=== PATIENT | female | born 1950 | race Two or more races ===

== ENCOUNTER 2023-11-26 11:30 | Inpatient (IN) | payer OTHER ==
[~2023-11-26] VITALS: Ht 152.4 cm; Wt 51.7 kg
[2023-11-26] MEDS ORDERED: CLONAZEPAM2 M1 PO (13:24)
[2023-11-26] MEDS ORDERED: ARICEPT5 MG PO (13:24)
[2023-11-26] MEDS ORDERED: TRAZODONE HCL150 MG PO (13:24)
[2023-11-26] MEDS ORDERED: LOSARTAN POTASS50 MG PO (13:25)
[2023-11-26] MEDS ORDERED: NORVASC5 MG PO (13:25)
[2023-11-26 13:26] VITALS: BP 133/64
[2023-11-26] MEDS ORDERED: GLUMETZA500 MG PO (13:26)
[2023-11-26] MEDS ORDERED: ZOCOR40 MG PO (13:26)
[2023-12-02] MEDS ORDERED: METRONIDAZOLE/SODIUM CHLORIDE 500 MG/100 ML PIGGYBACK IV SCH (08:45)
[2023-12-02] MEDS ORDERED: BUPIVACAINE HCL 30 ML VIAL IJ SCH (08:45)
[2023-12-02] MEDS ORDERED: LIDOCAINE HCL 1%/EPINEPHRINE 20ML VIAL IJ SCH (08:45)
[2023-12-02] MEDS ORDERED: CEFTRIAXONE SODIUM 2,000 MG VIAL IV SCH (08:45)
[2023-12-02] MEDS ORDERED: OMEPRAZOLE40 MG (09:49)
[2023-12-02] MEDS ORDERED: FAMOTIDINE40 MG (09:59)
[2023-12-02] MEDS ORDERED: SUGAMMADEX SODIUM 200 MG/2 ML VIAL IV SCH (11:45)
[2023-12-02] MEDS ORDERED: MORPHINE SULFATE 4 MG/ML VIAL IV ONE ×2 (12:45→13:15)
[2023-12-02] MEDS ORDERED: ONDANSETRON HCL 2 MG/ML VIAL IV PRN (13:00)
[2023-12-02] MEDS ORDERED: MORPHINE SULFATE 4 MG/ML CARTRIDGE IV PRN (13:00)
[2023-12-02] MEDS ORDERED: HYOSCYAMINE SULFATE 0.125 MG TAB.SUBL SL SCH (13:00)
[2023-12-02] MEDS ORDERED: SIMETHICONE 125 MG CAPSULE PO SCH (13:00)
[2023-12-02] MEDS ORDERED: RINGERS SOLUTION,LACTATED 1,000 ML IV SCH (13:00)
[2023-12-02] MEDS ORDERED: OxyCODONE HCL 5 MG TABLET (ROXICODONE) PO PRN (13:00)
[2023-12-02] MEDS ORDERED: ACETAMINOPHEN 500 MG GEL..CAP PO SCH (14:00)
[2023-12-02 14:04] LABS: HEMATOCRIT 29.4 % (36.0-45.00); HEMOGLOBIN 9.9 g/dL (12.0-15.00); MEAN CELL VOLUME 91.7 fL (80.00-100.00); MEAN CORPUSCULAR HEMOGLOBIN 30.9 pg (27.00-32.0); MEAN CORPUSCULAR HGB CONC 33.6 g/dl (32.0-36.0); PLATELET COUNT 134 K/uL (150-450); RED BLOOD COUNT 3.21 M/uL (4.00-6.00); RED CELL DISTRIBUTION WIDTH 14.2 % (11.5-14.5)
[2023-12-02 15:12] VITALS: BP 133/64; O2SAT 95
[2023-12-02] MEDS ORDERED: METOCLOPRAMIDE HCL 5 MG/ML VIAL IV SCH (17:00)
[2023-12-02] MEDS ORDERED: GABAPENTIN 300 MG CAPSULE PO SCH (17:00)
[2023-12-02] MEDS ORDERED: POLYETHYLENE GLYCOL 3350 17 GM BLIST.PACK PO SCH (17:00)
[2023-12-02] MEDS ORDERED: CELECOXIB 200 MG CAPSULE PO SCH (17:00)
[2023-12-02 18:01] VITALS: BP 141/78; O2SAT 98
[2023-12-02] MEDS ORDERED: FAMOTIDINE/PF 20 MG/2 ML VIAL IV PUSH SCH (21:00)
[2023-12-02 23:58] VITALS: BP 110/62; O2SAT 96
[2023-12-03 06:59] LABS: HEMATOCRIT 28.8 % (36.0-45.00); MEAN CELL VOLUME 91.1 fL (80.00-100.00); MEAN CORPUSCULAR HEMOGLOBIN 31.6 pg (27.00-32.0); MEAN CORPUSCULAR HGB CONC 34.7 g/dl (32.0-36.0); PLATELET COUNT 144 K/uL (150-450); RED BLOOD COUNT 3.16 M/uL (4.00-6.00); RED CELL DISTRIBUTION WIDTH 13.6 % (11.5-14.5)
[2023-12-03 07:06] LABS: ALBUMIN 2.8 gm/dL (3.4-5.0); CALCIUM 9.8 mg/dL (8.5-10.1); CREATININE SERUM 1.18 mg/dL (0.55-1.02); GFR 44.77; PHOSPHOROUS 2.9 mg/dL (2.5-4.9); POTASSIUM 4.3 mEq/L (3.5-5.1)
[2023-12-03 07:35] LABS: MAGNESIUM 1.3 mg/dL (1.8-2.4)
[2023-12-03 08:21] VITALS: BP 145/65; O2SAT 94
[2023-12-03] MEDS ORDERED: LACTOBACILLUS ACIDOPHILUS 1 CAP CAP PO SCH (09:00)
[2023-12-03] MEDS ORDERED: LACTULOSE 20 G/30 ML BLIST.PACK PO SCH (09:00)
[2023-12-03] MEDS ORDERED: DEXTROSE 50 % IN WATER 0.5 G/ML DISP.SYRIN IV PRN (10:15)
[2023-12-03] MEDS ORDERED: INSULIN LISPRO 1,000 UNIT/10 ML UNITS SUBCUTANEO PRN (10:15)
[2023-12-03] MEDS ORDERED: MAGNESIUM SULFATE IN WATER 50 ML IV NR (11:00)
[2023-12-03 16:00] VITALS: BP 140/85; O2SAT 97
[2023-12-03] MEDS ORDERED: GABAPENTIN 100 MG CAPSULE PO SCH (17:00)
[2023-12-03] MEDS ORDERED: ENOXAPARIN SODIUM 40 MG/0.4 ML SYRINGE SUBCUTANEO SCH (17:00)
[2023-12-03] MEDS ORDERED: GABAPENTIN 300 MG CAPSULE PO SCH (21:00)
[2023-12-04 01:41] VITALS: BP 180/83; O2SAT 95
[2023-12-04 06:53] LABS: HEMATOCRIT 33.1 % (36.0-45.00); HEMOGLOBIN 11.3 g/dL (12.0-15.00); MEAN CELL VOLUME 91.4 fL (80.00-100.00); MEAN CORPUSCULAR HEMOGLOBIN 31.2 pg (27.00-32.0); MEAN CORPUSCULAR HGB CONC 34.2 g/dl (32.0-36.0); PLATELET COUNT 136 K/uL (150-450); RED BLOOD COUNT 3.62 M/uL (4.00-6.00); RED CELL DISTRIBUTION WIDTH 14.1 % (11.5-14.5)
[2023-12-04 07:51] LABS: CALCIUM 9.7 mg/dL (8.5-10.1); CREATININE SERUM 1.91 mg/dL (0.55-1.02); GFR 25.68; MAGNESIUM 2.5 mg/dL (1.8-2.4); PHOSPHOROUS 2.5 mg/dL (2.5-4.9); POTASSIUM 4.39 mEq/L (3.5-5.1)
[2023-12-04] MEDS ORDERED: ENOXAPARIN SODIUM 40 MG/0.4 ML SYRINGE SUBCUTANEO SCH (09:00)
[2023-12-04] MEDS ORDERED: 0.9 % SODIUM CHLORIDE 1,000 ML IV SCH (09:45)
[2023-12-04] MEDS ORDERED: ENOXAPARIN SODIUM 30 MG/0.3 ML SYRINGE SUBCUTANEO NR (10:10)
[2023-12-04] MEDS ORDERED: DONEPEZIL HCL 5 MG TABLET PO SCH (12:04)
[2023-12-04] MEDS ORDERED: AMLODIPINE BESYLATE 5 MG TABLET PO SCH (12:06)
[2023-12-04 12:14] VITALS: BP 180/82; O2SAT 95
[2023-12-04] MEDS ORDERED: hydrALAZINE HCL 25 MG TABLET PO SCH (13:00)
[2023-12-04] MEDS ORDERED: hydrALAZINE HCL 20 MG VIAL IV PRN (14:00)
[2023-12-04 16:00] VITALS: BP 162/85; O2SAT 94
[2023-12-04] MEDS ORDERED: SIMVASTATIN 40 MG TABLET PO SCH (17:00)
[2023-12-04] MEDS ORDERED: CLONAZEPAM 0.5 MG TABLET PO SCH (21:00)
[2023-12-05] VITALS: BP 155/70; O2SAT 96
[2023-12-05 08:25] VITALS: BP 133/65; O2SAT 96
[2023-12-05 08:31] LABS: HEMATOCRIT 29.3 % (36.0-45.00); HEMOGLOBIN 9.9 g/dL (12.0-15.00); MEAN CELL VOLUME 92.1 fL (80.00-100.00); MEAN CORPUSCULAR HEMOGLOBIN 31.3 pg (27.00-32.0); MEAN CORPUSCULAR HGB CONC 33.9 g/dl (32.0-36.0); PLATELET COUNT 147 K/uL (150-450); RED BLOOD COUNT 3.18 M/uL (4.00-6.00); RED CELL DISTRIBUTION WIDTH 13.6 % (11.5-14.5)
[2023-12-05] MEDS ORDERED: ENOXAPARIN SODIUM 30 MG/0.3 ML SYRINGE SUBCUTANEO SCH (09:00)
[2023-12-05] MEDS ORDERED: FAMOTIDINE/PF 20 MG/2 ML VIAL IV PUSH SCH (09:00)
[2023-12-05 09:38] LABS: CALCIUM 8.2 mg/dL (8.5-10.1); CREATININE SERUM 3.19 mg/dL (0.55-1.02); GFR 14.21; MAGNESIUM 2.2 mg/dL (1.8-2.4); POTASSIUM 4.6 mEq/L (3.5-5.1)
[2023-12-05] MEDS ORDERED: POTASSIUM PHOS,M-BASIC-D-BASIC 15 MM in 0.9 % SODIUM CHLORIDE 250 ML IV NR (11:30)
[2023-12-05] MEDS ORDERED: 0.9 % SODIUM CHLORIDE 1,000 ML IV SCH (13:45)
[2023-12-05 17:03] VITALS: BP 106/64; O2SAT 97
[2023-12-06] VITALS: BP 133/55; O2SAT 95
[2023-12-06 07:46] LABS: HEMOGLOBIN 9.5 g/dL (12.0-15.00); MEAN CELL VOLUME 92.3 fL (80.00-100.00); MEAN CORPUSCULAR HEMOGLOBIN 31.4 pg (27.00-32.0); PLATELET COUNT 185 K/uL (150-450); RED BLOOD COUNT 3.03 M/uL (4.00-6.00); RED CELL DISTRIBUTION WIDTH 13.9 % (11.5-14.5)
[2023-12-06 08:24] LABS: ALBUMIN 2.4 gm/dL (3.4-5.0); BILIRUBIN TOTAL 0.35 mg/dL (0.3-1.2); CALCIUM 8.6 mg/dL (8.5-10.1); CREATININE SERUM 2.11 mg/dL (0.55-1.02); GFR 22.9; GLOBULINA 3.2 G/DL (2.4-3.5); PHOSPHOROUS 2.6 mg/dL (2.5-4.9); POTASSIUM 4.12 mEq/L (3.5-5.1); TOTAL PROTEIN 5.6 gm/dL (6.4-8.2)
[2023-12-06] MEDS ORDERED: SODIUM CHLORIDE 0.45 % 1,000 ML IV SCH (09:30)
[2023-12-06 09:38] VITALS: BP 110/62; O2SAT 96
[2023-12-06] MEDS ORDERED: METRONIDAZOLE/SODIUM CHLORIDE 100 ML IV SCH (09:50)
[2023-12-06] MEDS ORDERED: levoFLOXacin IN DEXTROSE 5 % 100 ML IV SCH (09:50)
[2023-12-06] MEDS ORDERED: TAMSULOSIN HCL 0.4 MG CAP PO NR (14:45)
[2023-12-06 15:30] VITALS: BP 93/62; O2SAT 96
[2023-12-07 00:42] VITALS: BP 130/68; O2SAT 98
[2023-12-07 07:06] LABS: ALBUMIN 2.4 gm/dL (3.4-5.0); BILIRUBIN TOTAL 0.36 mg/dL (0.3-1.2); CALCIUM 8.4 mg/dL (8.5-10.1); CREATININE SERUM 1.42 mg/dL (0.55-1.02); GFR 36.16; GLOBULINA 3.2 G/DL (2.4-3.5); POTASSIUM 3.86 mEq/L (3.5-5.1); TOTAL PROTEIN 5.6 gm/dL (6.4-8.2)
[2023-12-07] MEDS ORDERED: TAMSULOSIN HCL 0.4 MG CAP PO SCH (09:00)
[2023-12-07 10:09] VITALS: BP 123/58; O2SAT 99
[2023-12-07] MEDS ORDERED: CHOLESTYRAMINE/ASPARTAME LIGHT 4 G/PKT PACKET PO SCH (13:00)
[2023-12-07 15:54] VITALS: BP 93/51; O2SAT 98
[2023-12-07 16:06] VITALS: BP 143/62
[2023-12-08 00:42] VITALS: BP 114/70; O2SAT 95
[2023-12-08 06:26] LABS: HEMATOCRIT 24.5 % (36.0-45.00); MEAN CELL VOLUME 89.4 fL (80.00-100.00); MEAN CORPUSCULAR HGB CONC 35.2 g/dl (32.0-36.0); PLATELET COUNT 194 K/uL (150-450); RED BLOOD COUNT 2.74 M/uL (4.00-6.00); RED CELL DISTRIBUTION WIDTH 13.8 % (11.5-14.5)
[2023-12-08 06:41] LABS: MEAN CORPUSCULAR HEMOGLOBIN 31.3 pg (27.00-32.0)
[2023-12-08 06:44] LABS: HEMOGLOBIN 8.6 g/dL (12.0-15.00)
[2023-12-08 06:54] LABS: ALBUMIN 2.5 gm/dL (3.4-5.0); BILIRUBIN TOTAL 0.25 mg/dL (0.3-1.2); CALCIUM 8.6 mg/dL (8.5-10.1); CREATININE SERUM 1.2 mg/dL (0.55-1.02); GFR 43.91; GLOBULINA 3.2 G/DL (2.4-3.5); PHOSPHOROUS 2.2 mg/dL (2.5-4.9); POTASSIUM 3.45 mEq/L (3.5-5.1); TOTAL PROTEIN 5.7 gm/dL (6.4-8.2)
[2023-12-08 07:35] LABS: MAGNESIUM 1.1 mg/dL (1.8-2.4)
[2023-12-08 08:09] VITALS: BP 127/55; O2SAT 97
[2023-12-08] MEDS ORDERED: MAGNESIUM SULFATE IN WATER 50 ML IV NR (11:00)
[2023-12-08] MEDS ORDERED: POTASSIUM CHLORIDE 20 MEQ VIAL IV ONE (13:00)
[2023-12-08] MEDS ORDERED: MAGNESIUM SULFATE IN WATER 50 ML IV STA (14:30)
[2023-12-08] MEDS ORDERED: LOPERAMIDE HCL 2 MG CAPSULE PO PRN (16:00)
[2023-12-09] VITALS: BP 119/54; O2SAT 96
[2023-12-09 07:28] LABS: HEMATOCRIT 24.9 % (36.0-45.00); MEAN CELL VOLUME 90.1 fL (80.00-100.00); MEAN CORPUSCULAR HEMOGLOBIN 31.1 pg (27.00-32.0); MEAN CORPUSCULAR HGB CONC 34.7 g/dl (32.0-36.0); PLATELET COUNT 241 K/uL (150-450); RED BLOOD COUNT 2.76 M/uL (4.00-6.00)
[2023-12-09 07:29] LABS: HEMOGLOBIN 8.6 g/dL (12.0-15.00)
[2023-12-09 08:08] LABS: CALCIUM 8.4 mg/dL (8.5-10.1); CREATININE SERUM 1.16 mg/dL (0.55-1.02); GFR 45.67; MAGNESIUM 2.2 mg/dL (1.8-2.4); PHOSPHOROUS 2.9 mg/dL (2.5-4.9); POTASSIUM 3.27 mEq/L (3.5-5.1)
[2023-12-09] MEDS ORDERED: Cyanocobalamin/Mecobalamin 1 TAB.SL SL SCH (09:00)
[2023-12-09] MEDS ORDERED: FAMOtidine 20 MG TABLET PO SCH (09:00)
[2023-12-09] MEDS ORDERED: SOD FERRIC GLUC COMPLX/SUCROSE 62.5 MG in 0.9 % SODIUM CHLORIDE 50 ML IV SCH (09:00)
[2023-12-09 10:30] VITALS: BP 124/55; O2SAT 99
[2023-12-09] MEDS ORDERED: DEXTROSE 5%-LACTATED RINGERS 1,000 ML IV SCH (10:30)
[2023-12-09] MEDS ORDERED: POTASSIUM CHLORIDE 20 MEQ VIAL IV NR (10:30)
[2023-12-09] MEDS ORDERED: DEXTROSE 5 % IN WATER 1,000 ML IV SCH (12:30)
[2023-12-09 12:44] VITALS: BP 123/54; O2SAT 99
[2023-12-09 17:00] VITALS: BP 121/63; BP 99/55; O2SAT 96; O2SAT 98
[2023-12-10] VITALS: BP 114/51; O2SAT 95
[2023-12-10 06:57] LABS: CALCIUM 9.3 mg/dL (8.5-10.1); CREATININE SERUM 1.21 mg/dL (0.55-1.02); GFR 43.5; MAGNESIUM 1.8 mg/dL (1.8-2.4); PHOSPHOROUS 2.9 mg/dL (2.5-4.9); POTASSIUM 3.43 mEq/L (3.5-5.1)
[2023-12-10] MEDS ORDERED: ENOXAPARIN SODIUM 40 MG/0.4 ML SYRINGE SUBCUTANEO SCH (09:00)
[2023-12-10 09:30] VITALS: BP 136/65; O2SAT 97
[2023-12-10] MEDS ORDERED: POTASSIUM BICARBONATE/CIT AC 25 MEQ TABLET.EFF PO SCH (17:00)
== END 2023-12-10 15:11 | disposition home or self-care (01) | DRG 331 ==
LOC: O/R 12-02 05:10 → SURH 12-02 05:10
PROVIDERS: Internal Medicine; Internal Medicine Geriatric Medicine; Surgery; ADMIT Colon & Rectal Surgery; ATTEND Colon & Rectal Surgery
PROC: 0DBP4ZZ Excision of Rectum, Percutaneous Endoscopic Approach (ICD-10-PCS; 2023-12-02)
PROC: 0DTN4ZZ Resection of Sigmoid Colon, Percutaneous Endoscopic Approach (ICD-10-PCS; principal; 2023-12-02 08:30)
DX: K57.32 Diverticulitis of large intestine without perforation or abscess without bleeding (principal); I11.9 Hypertensive heart disease without heart failure; E11.9 Type 2 diabetes mellitus without complications; Z79.4 Long term (current) use of insulin